=== PATIENT | female | born 2005 | race Caucasian/White ===

== ENCOUNTER 2024-06-01 23:48 | Emergency (ER) | payer OTHER ==
[~2024-06-01] VITALS: Ht 165.1 cm; Wt 121.0 kg
[2024-06-01 23:49] VITALS: BP 127/74; TEMP 97; O2SAT 97
[2024-06-02] MEDS ORDERED: CEPH500C PO (05:46)
[2024-06-02] MEDS: CEPHALEXIN 500 MG CAP PO ONE (05:58)
== END 2024-06-02 05:59 | disposition home or self-care (01) ==
LOC: M ED 23:48
DX: S01.331A Puncture wound without foreign body of right ear, initial encounter (principal); X58.XXXA Exposure to other specified factors, initial encounter; Y92.9 Unspecified place or not applicable; Y93.89 Activity, other specified; Y99.9 Unspecified external cause status